=== PATIENT | female | born 1970 | race Caucasian/White ===

== ENCOUNTER → 2017-02-06 | Outpatient (CLI) | payer BC | LOC: MC.RAD 14:40 | DX: Z12.31 Encounter for screening mammogram for malignant neoplasm of breast (principal) ==

== ENCOUNTER → 2018-02-09 | Outpatient (CLI) | payer BC | LOC: MC.RAD 08:04 | DX: Z12.31 Encounter for screening mammogram for malignant neoplasm of breast (principal) ==

== ENCOUNTER 2019-02-11 09:37 | Day surgery (SDC) | payer BC ==
--- NOTE | 2019-02-08 10:28 | NUR ---
DRESSED PATIENT AND TRANSFERED TO OWN .
--- NOTE | 2019-02-08 10:32 | NUR ---
DISCHARGED PER OWN WC IN CARE OF [facility] STAFF -NANCY
--- NOTE | 2019-02-08 10:40 | NUR ---
REPORT CALLED TO SAMUEL.
[~2019-02-11] VITALS: Ht 162.6 cm; Wt 91.0 kg
[2019-02-11] MEDS ORDERED: ALDACTONE 100M100 MG PO (09:56)
[2019-02-11] MEDS ORDERED: ZOCOR 20MG20 MG PO (09:57)
[2019-02-11] MEDS ORDERED: PRINIVIL2.5 MG PO (09:57)
[2019-02-11] MEDS ORDERED: PROMETRIUM100 MG PO (09:57)
[2019-02-11] MEDS ORDERED: NP THYROID60 MG PO (09:58)
[2019-02-11] MEDS ORDERED: GLUCOPHAGE500 MG/TAB PO ×2 (09:58→09:59)
[2019-02-11] MEDS ORDERED: SINGULAIR 110 MG/TAB PO (09:58)
[2019-02-11] MEDS ORDERED: PAXIL 30MG30 MG PO (09:59)
[2019-02-11] MEDS ORDERED: ASPIRIN 81M81 MG/TA2 PO (10:00)
[2019-02-11] MEDS ORDERED: ZOVIRAX400 MG PO (10:00)
[2019-02-11] MEDS ORDERED: ZYRTEC 10MG10 MG PO (10:01)
[2019-02-11 10:27] VITALS: BP 121/88; PULSE 96; TEMP 98.4
--- NOTE | 2019-02-11 10:30 | NUR ---
Patient became very nauseated after IV started. PRN Zofran given.
[2019-02-11 11:20] VITALS: BP 107/79; PULSE 90; TEMP 97.6
--- NOTE | 2019-02-11 11:20 | NUR ---
Patient arrives back to [facility] alert, denies pain or nausea. Patient ambulates from cart to chair with standby assist and without any difficulties. Patient monitor applied, vitals stable. Patient given water and toast.
--- NOTE | 2019-02-11 11:25 | NUR ---
Dr Bolaños into see patient at this time to go over results.
[2019-02-11 11:30] VITALS: BP 113/91; PULSE 92
--- NOTE | 2019-02-11 11:30 | NUR ---
Patient's family into see patient at this time.
[2019-02-11 11:45] VITALS: BP 122/82; PULSE 75
--- NOTE | 2019-02-11 11:55 | NUR ---
Dismissal instructions gone over with patient and patient's mother. Both verbalize understanding and all questions answered.
--- NOTE | 2019-02-11 12:00 | NUR ---
Patient dismissed to home via wheelchair to patient enterance to private vehicle. Patient and family leave thanking staff for services.
== END 2019-02-11 12:00 | disposition home or self-care (01) ==
LOC: SDCO 09:37
DX: Z12.11 Encounter for screening for malignant neoplasm of colon (principal); D12.3 Benign neoplasm of transverse colon; I10 Essential (primary) hypertension; E11.9 Type 2 diabetes mellitus without complications; F32.9 Major depressive disorder, single episode, unspecified; F41.9 Anxiety disorder, unspecified; Z90.710 Acquired absence of both cervix and uterus; Z79.82 Long term (current) use of aspirin; Z79.84 Long term (current) use of oral hypoglycemic drugs
CPT/HCPCS: J2405; J2704; J7030

== ENCOUNTER → 2019-05-02 | Outpatient (CLI) | payer BC ==
[~2019-05-02] MED LIST: ALDACTONE 100M100 MG PO; ASPIRIN 81M81 MG/TA2 PO; GLUCOPHAGE500 MG/TAB PO; NP THYROID60 MG PO; PAXIL 30MG30 MG PO; PRINIVIL2.5 MG PO; PROMETRIUM100 MG PO; SINGULAIR 110 MG/TAB PO; ZOCOR 20MG20 MG PO; ZOVIRAX400 MG PO; ZYRTEC 10MG10 MG PO
== END ==
LOC: MC.RAD 07:45
DX: Z12.31 Encounter for screening mammogram for malignant neoplasm of breast (principal)

== ENCOUNTER → 2019-12-04 | Outpatient (CLI) | payer BC | LOC: BHSO 10:55 | DX: F33.41 Major depressive disorder, recurrent, in partial remission (principal) ==

== ENCOUNTER → 2020-01-02 | Outpatient (CLI) | payer BC | LOC: BHSO 08:58 | DX: F33.41 Major depressive disorder, recurrent, in partial remission (principal) | CPT/HCPCS: G0463 ==

== ENCOUNTER → 2020-06-30 | Outpatient (CLI) | payer BC | LOC: MC.RAD 15:37 | DX: Z12.31 Encounter for screening mammogram for malignant neoplasm of breast (principal) ==

== ENCOUNTER 2023-03-08 09:28 | Emergency (ER) | payer BC ==
[~2023-03-08] VITALS: Ht 162.6 cm; Wt 72.7 kg
[2023-03-08 09:32] VITALS: TEMP 98.3
[2023-03-08 10:24] LABS: BASO # 0.1 K/mm3 (0.0-0.2); BASO % 0.9 % (0.0-2.0); EOS # 0.1 K/mm3 (0.0-0.7); EOS % 1.9 % (0.0-4.0); GRAN # 2.2 K/mm3 (1.4-6.5); GRAN % 37.7 % (42.2-75.2); HEMATOCRIT 45.4 % (37.0-47.0); HEMOGLOBIN 15.5 g/dl (12.5-16.0); LYMPH # 2.9 K/mm3 (1.2-3.4); LYMPH % 50.4 % (20.0-51.0); MEAN CELL VOLUME 90 fl (80.0-100.0); MEAN CORPUSCULAR HEMOGLOBIN 31 pg (27-31); MEAN CORPUSCULAR HGB CONC 34 g/dl (33.0-37.0); MEAN PLATELET VOLUME 9.5 fl (7.4-10.4); MONO # 0.5 K/mm3 (0.1-0.6); MONO % 8.9 % (1.7-9.3); PLATELET COUNT 273 K/mm3 (130-400); RED BLOOD COUNT 5.07 M/mm3 (4.10-5.30); REDCELL DISTRIBUTION WIDTH-CV 12.3 % (11.5-14.5)
[2023-03-08 10:42] LABS: ALANINE AMINOTRANSFERASE 35 U/L (0-55); ALBUMIN 4.6 gm/dL (3.5-5.0); ALKALINE PHOSPHATASE 70 U/L (40-150); ANION GAP 11 mmol/L (7-16); AST,SGOT 33 U/L (5-34); BILIRUBIN,TOTAL 0.6 mg/dL (0.2-1.2); BLOOD UREA NITROGEN 12 mg/dL (10-20); CALCIUM 9.9 mg/dL (8.4-10.2); CARBON DIOXIDE 25 mmol/L (22-29); CHLORIDE 102 mmol/L (98-107); CREATININE, serum 0.95 mg/dL (0.57-1.11); GLUCOSE 89 mg/dL (70-99); SODIUM 138 mmol/L (136-145); TOTAL PROTEIN 7.8 gm/dL (6.2-8.1)
[2023-03-08 10:51] LABS: TROPONIN-I < 0.010 ng/mL (0.00-0.033)
[2023-03-08] MEDS ORDERED: FLEXERIL 1010 MG/TAB PO (11:01)
[2023-03-08 11:28] VITALS: BP 113/77; PULSE 82
== END 2023-03-08 11:19 | disposition home or self-care (01) ==
LOC: COL.ER 09:28
PROVIDERS: Physician Assistant
DX: M62.838 Other muscle spasm (principal)

== ENCOUNTER → 2023-10-16 | Outpatient (CLI) | payer BC ==
[~2023-10-16] MED LIST changes: +FLEXERIL 1010 MG/TAB PO
== END ==
LOC: COL.RAD 14:46
DX: Z12.31 Encounter for screening mammogram for malignant neoplasm of breast (principal)